=== PATIENT | female | born 1995 | race Caucasian/White ===

== ENCOUNTER 2020-10-01 07:56 | Emergency (ER) | payer BC, OTHER ==
[2020-10-01] MEDS ORDERED: Cyclobenzaprine 10 MG Tab PO ONE (08:43)
[2020-10-01] MEDS ORDERED: Acetaminophen/HYDROcodone 325-5 MG Tab PO ONE (08:43)
--- NOTE | 2020-10-01 09:06 | EDM.PDOC ---
ED HPI GENERAL MEDICAL PROBLEM - General Chief Complaint: Back Pain or Injury Stated Complaint: BACK PAIN Time Seen by Provider: 10/01/20 08:30 Source of Information: Reports: Patient, RN Notes Reviewed - History of Present Illness INITIAL COMMENTS - FREE TEXT/NARRATIVE: 25 yr old female with low back pain. Injured back 2 days ago lifting and bending. Pain is in low back, does not radiate down to either leg. better at rest, worse with any type of motion. Back Pain Score (Numeric/FACES): 8 - Related Data Allergies Allergy/AdvReac Type Severity Reaction Status Date / Time Penicillins Allergy Severe Hives Verified 10/01/20 08:18 Home Meds: Home Meds Acetaminophen/HYDROcodone [Foristell 325-5 MG] 1 tab PO Q6H PRN #14 tablet 10/01/20 [Rx] Cyclobenzaprine [Flexeril] 5 mg PO TID #14 tab 10/01/20 [Rx] Past Medical History - Past Health History Medical/Surgical History: Denies Medical/Surgical History - Past Surgical History HEENT Surgical History: Reports: Adenoidectomy, Oral Surgery, Tonsillectomy Musculoskeletal Surgical History: Reports: Arthroscopic Knee Social & Family History - Tobacco Use Tobacco Use Status *Q: Never Tobacco User - Recreational Drug Use Recreational Drug Use: No ED ROS GENERAL - Review of Systems Review Of Systems: See Below Constitutional: Denies: Fever, Chills HEENT: Reports: No Symptoms Respiratory: Reports: No Symptoms Cardiovascular: Reports: No Symptoms GI/Abdominal: Reports: No Symptoms Musculoskeletal: Reports: Back Pain. Denies: Leg Pain Skin: Reports: No Symptoms Neurological: Reports: No Symptoms ED EXAM,LOWER BACK PAIN/INJURY - Physical Exam Exam: See Below General Appearance: Alert, Mild Distress Head: Atraumatic Neck: Supple Respiratory/Chest: No Respiratory Distress, Lungs Clear, Normal Breath Sounds Cardiovascular: Regular Rate, Rhythm GI/Abdominal: Soft, Non-Tender Back Exam: Paraspinal Tenderness (bilat low back with mild spasm) Extremities: Normal Inspection, Normal Range of Motion Neurological: Alert, No Motor/Sensory Deficits Course - Vital Signs Last Recorded V/S: Last Vital Signs Temp 97.9 F 10/01/20 08:14 Pulse 60 10/01/20 08:14 Resp 16 10/01/20 08:14 BP 113/73 10/01/20 08:14 Pulse Ox 100 10/01/20 08:14 - Orders/Labs/Meds Meds: Medications Discontinued Medications Generic Name Dose Route Start Last Admin Trade Name Vignesh PRN Reason Stop Dose Admin Hydrocodone Bitart/Acetaminophen 1 tab 10/01/20 08:43 10/01/20 09:08 Foristell 325-5 Mg PO 10/01/20 08:44 1 tab ONETIME ONE Administration Cyclobenzaprine HCl 10 mg 10/01/20 08:43 10/01/20 09:08 Flexeril PO 10/01/20 08:44 10 mg ONETIME ONE Administration Cyclobenzaprine HCl Confirm 10/01/20 09:10 10/01/20 09:53 Flexeril Administered 10/01/20 09:11 Not Given Dose 10 mg .ROUTE .STK-MED ONE Departure - Departure Time of Disposition: 09:06 Disposition: Home, Self-Care 01 Condition: Fair Clinical Impression: Low back strain - Discharge Information Prescriptions: Cyclobenzaprine [Flexeril] 5 mg PO TID #14 tab Acetaminophen/HYDROcodone [Foristell 325-5 MG] 1 tab PO Q6H PRN #14 tablet PRN Reason: Pain Instructions: Muscle Strain, [id number]-[id number], Low Back Strain Rehab-SportsMed Referrals: PCP,None [Primary Care Provider] - Forms: ED Department Discharge Additional Instructions: Rest back, alternate ice and heat to low back as needed. hydrocodone 1 tab q 6 hr for severe pain as needed. When pain becomes less severe switch to tylenol. Flexeril 5 mg 2 to 3 times daily for muscle relaxation as needed. Prescriptions have been sent to [facility]. They open at 12 noon today, close at 4 PM. Continue to work with your Chiropractor. Follow up with your regular medical provider if not much better within 3 to 5 days as expected. Sepsis Event Note (ED) - Evaluation Sepsis Screening Result: No Definite Risk
[2020-10-01] MEDS ORDERED: Cyclobenzaprine 10 MG Tab ONE (09:10)
== END 2020-10-01 09:58 | disposition home or self-care (01) ==
LOC: JD.ED 07:56
DX: S39.012A Strain of muscle, fascia and tendon of lower back, initial encounter (principal); Z88.0 Allergy status to penicillin; X50.9XXA Other and unspecified overexertion or strenuous movements or postures, initial encounter
CPT/HCPCS: 99283; A9270

== ENCOUNTER 2024-10-12 11:23 | Emergency (ER) | payer BC, OTHER ==
[2024-10-12 12:05] LABS: BASOPHILS PERCENT AUTO 0.5 % (0.0-1.0); EOSINOPHILS ABSOLUTE AUTO 0.1 K/mm3 (0.0-0.4); EOSINOPHILS PERCENT AUTO 1.4 % (0.0-6.0); HEMATOCRIT 39.2 % (37.0-47.0); HEMOGLOBIN 12.6 gm/dl (12.0-16.0); IMMATURE GRAN ABSOLUTE AUTO 0.03 K/mm3 (0.00-0.05); IMMATURE GRAN PERCENT AUTO 0.4 % (0.0-0.4); LYMPHOCYTES ABSOLUTE AUTO 2.5 K/mm3 (1.0-4.8); LYMPHOCYTES PERCENT AUTO 32.3 % (24.0-44.0); MEAN CORPUSCULAR HGB CONC 32.1 g/dl (32.0-36.0); MEAN CORPUSCULAR VOLUME 90.1 fl (83.0-99.0); MEAN PLATELET VOLUME 9.3 fl (9.4-12.3); MONOCYTES ABSOLUTE AUTO 0.4 K/mm3 (0.0-0.8); NEUTROPHILS ABSOLUTE AUTO 4.7 K/mm3 (1.8-7.7); NEUTROPHILS PERCENT AUTO 60.4 % (41.0-71.0); PLATELET COUNT,PLT 243 K/mm3 (150-400); RED BLOOD CELL COUNT 4.35 M/mm3 (4.10-5.30); WHITE BLOOD CELL COUNT,WBC 7.74 K/mm3 (3.9-11.3)
[2024-10-12 12:27] LABS: A/G RATIO 0.9 (1-2); ALANINE AMINOTRANSFERASE,ALT 16 U/L (14-59); ALBUMIN 3.6 g/dl (3.4-5.0); ALKALINE PHOSPHATASE 94 U/L (46-116); ANION GAP 13.3 (5-15); ASPARTATE AMNIOTRANSFERASE,AST 11 U/L (15-37); BILIRUBIN TOTAL 0.4 mg/dL (0.2-1.0); BLOOD UREA NITROGEN,BUN 7 mg/dL (7-18); CALCIUM 9.1 mg/dL (8.5-10.1); CARBON DIOXIDE,CO2 27 mEq/L (21-32); CHLORIDE,CL 106 mEq/L (98-107); EST CRCL DRUG DOSING (CG) 86.75 mL/min; ESTIMATED GFR 78 mL/min (>60); GLUCOSE RANDOM 90 mg/dL (70-99); MAGNESIUM 1.9 mg/dL (1.8-2.4); POTASSIUM,K 4.3 mEq/L (3.5-5.1); PROTEIN TOTAL,TP 7.5 g/dl (6.4-8.2); SODIUM,NA 142 mEq/L (136-145)
[2024-10-12 12:29] LABS: TROPONIN I HIGH SENSITIVITY < 4 pg/mL (<=51)
[2024-10-12] MEDS: Sodium Chloride 0.9% 100 ML IV SCH (13:24)
[2024-10-12] MEDS: Sodium Chloride 0.9% 10 ML Syringe FLUSH ONE (13:24)
[2024-10-12] MEDS: Iopamidol 755 Mg/ML 100 ML Bottle IVPUSH ONE (13:24)
== END 2024-10-12 14:03 | disposition home or self-care (01) ==
LOC: JD.ED 11:23
DX: R07.89 Other chest pain (principal); Z88.0 Allergy status to penicillin; Z79.84 Long term (current) use of oral hypoglycemic drugs; Z79.899 Other long term (current) drug therapy
CPT/HCPCS: 36415; 71045; 71275; 80053; 81025; 83735; 84484; 85025; 85379; 93005; 99285; Q9967